=== PATIENT | male | born 1945 | race Caucasian/White ===

== ENCOUNTER 2017-03-04 09:21 | Day surgery (SDC) | payer MEDICARE, OTHER ==
[~2017-03-04] VITALS: Ht 167.6 cm; Wt 63.5 kg
[2017-03-04 11:36] VITALS: BP 177/99; Ht 167.6 cm; Wt 63.5 kg
[2017-03-04 11:48] LABS: HEMATOCRIT 44.3 % (42.0-54.0); MCH 30.7 pg (26.0-34.0); MCHC 33.9 g/dL (31.0-37.0); MCV 90.6 fL (80.0-100.0); MEAN PLATELET VOLUME 13.4 fL (7.4-10.4); RBC 4.89 10x6/uL (4.20-6.10); RDW 13.2 % (11.5-14.5)
--- NOTE | 2017-03-04 13:12 | NUR ---
POST OP SHOE TO RIGHT FOOT
--- NOTE | 2017-04-15 14:50 | OP ---
PATIENT NAME: YUE RAMIREZ MEDICAL RECORD: [id number] :47 LOCATION:[facility] ADMISSION DATE: SURGEON: CHANTE CASTANON DATE OF OPERATION: 03/04/2017 SURGEON: Chante Castanon DPM PREOPERATIVE DIAGNOSES: 1. Hammertoe, fourth toe, right foot. 2. Hammertoe, fifth toe, right foot. POSTOPERATIVE DIAGNOSES: 1. Hammertoe, fourth toe, right foot. 2. Hammertoe, fifth toe, right foot. PROCEDURES: 1. Arthroplasty, fourth toe, right foot. 2. Arthroplasty, fifth toe, right foot. ANESTHESIA: LMA with local field block. HEMOSTASIS: Pneumatic ankle tourniquet inflated to 250 mmHg. ESTIMATED BLOOD LOSS: Minimal. MATERIALS: 3-0 Vicryl, 4-0 Prolene. INJECTABLES: 20 cc of 0.5% bupivacaine plain. INDICATION: The patient has longstanding history of pain associated with hyperkeratotic lesion located between toes 4 and 5 of the right foot. He has tried toe spacer and wider shoes to no avail. He is here today for surgical correction of these hammertoe deformities that are causing the painful lesion. DESCRIPTION OF PROCEDURE: The patient was brought in the operating room and placed on the operating table in supine position. A timeout was called with Dr. Castanon, who identified the patient, the surgical site, and the surgery to be performed. Once appropriate anesthesia was obtained, the foot was prepped and draped in the usual aseptic manner. The pneumatic ankle tourniquet was inflated to 250 mmHg on the well-padded right ankle. Procedure #1: Arthroplasty, fourth toe, right foot: Attention was directed to the dorsal aspect of the fourth toe of the right foot where a 3-cm linear incision was made. This incision was carried deep to soft tissue with care being taken to retract all vital neurovascular structures. All bleeders were cauterized along the way. The extensor tendon was then transected from medial to lateral at the level of the proximal interphalangeal joint. The capsular structures were then released from the head of the proximal phalanx, thus exposing that part of the bone. Next, utilizing a single action bone cutter, the head of the proximal phalanx was removed. Rasp and rongeur were used to reduced any sharp bony prominence. The surgical site was then irrigated with copious amounts of normal sterile saline via bulb syringe. OPERATIVE REPORT [id number] ASHLEYYUE The extensor tendon was then reapproximated and coapted using 3-0 Vicryl. The subcu was then reapproximated and coapted using 3-0 Vicryl. The skin was then reapproximated and coapted using 4-0 Prolene. Procedure #2: Arthroplasty, fifth toe, right foot: The exact same procedure that was performed in procedure #1 (arthroplasty, fourth toe, right foot) was performed on the fifth toe, right foot without exception. A dressing consisting of Xeroform, 4 x 4's, Kerlix, and Neptali bandage was applied to the right foot. The pneumatic ankle tourniquet was deflated and capillary refill time was immediate to all digits of the right foot. The patient tolerated the procedure and anesthesia well and left the operating room with vital signs stable. The patient will be discharged home with instructions to ice and elevate the right foot. He was dispensed my cell phone number for any after difficulties. He was also dispensed a postop shoe to help offload the area. He will follow up with me next week. There were no complications with this procedure. 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
== END 2017-03-04 18:00 | disposition home or self-care (01) ==
LOC: D.OPS 09:21 → D.PAN 12:00 → D.OPS 18:00
PROVIDERS: Anesthesiology
DX: M20.41 Other hammer toe(s) (acquired), right foot (principal); Z01.812 Encounter for preprocedural laboratory examination

== ENCOUNTER 2018-07-22 09:55 | Outpatient (CLI) | payer MEDICARE, OTHER ==
[2018-07-22] MEDS ORDERED: MECLIZINE (13:02)
[2018-07-22] MEDS ORDERED: ADVIL200 MG (13:02)
[2018-07-22] MEDS ORDERED: ACETAMINOPHEN325 MG (13:02)
[2018-07-22 13:17] LABS: HEMOGLOBIN 15.6 g/dL (13.5-17.5); MCH 30.2 pg (26.0-34.0); MCHC 33.9 g/dL (31.0-37.0); RBC 5.17 10x6/uL (4.20-6.10); RDW 13.4 % (11.5-14.5); WBC 5.5 10x3/uL (4.8-10.8)
[2018-07-22 13:37] VITALS: BP 153/73; BMI 22.6
[2018-07-22 13:54] LABS: PLATELET COUNT 44 10x3/uL (130-400)
[2018-07-22 15:16] LABS: PLATELET ESTIMATE DECREASED
[2018-07-22 15:19] LABS: PLATELET MORPHOLOGY PLT CLUMPS PRESENT; ROULEAUX OCC
== END 2018-07-22 14:50 | disposition home or self-care (01) ==
LOC: D.OPS 09:55 → D.PAN 13:30 → EDSTATUS 13:30 → D.OPS 13:30
PROVIDERS: Anesthesiology; ATTEND Podiatrist
DX: M79.671 Pain in right foot (principal); Z53.09 Procedure and treatment not carried out because of other contraindication; Z01.812 Encounter for preprocedural laboratory examination